=== PATIENT | male | born 1955 | race Hispanic/Latino ===

== ENCOUNTER 2023-08-02 01:30 | Emergency (ER) | payer MEDICARE ==
[~2023-08-02] VITALS: Ht 165.1 cm; Wt 72.6 kg
[2023-08-02 01:42] VITALS: BP_SYST 187; BP_DIAS 101; BP_DIAS 89; PULSE 60; PULSE 64; RESP 17; TEMP 98.2; O2SAT 97
[2023-08-02] MEDS ORDERED: NS 500ML 500 ML IV ONE (02:04)
[2023-08-02 02:08] VITALS: BP 195/98; PULSE 64; RESP 17; TEMP 98.2; O2SAT 97
[2023-08-02 02:20] LABS: +ADD MANUAL DIFF(NO CHRG) NO; BASOPHIL % 0.6 % (0.0-0.2); EOSINOPHIL % 0.6 % (0.0-5.0); HEMATOCRIT(ML) 39.8 % (37.0-53.0); HEMOGLOBIN 12.1 g/dL (13.9-16.3); MEAN CORP HGB 26.8 pg (26-34); MEAN CORP HGB CONCENTRATION 30.4 g/dL (33-36.5); MEAN CORP VOLUME 88.1 fL (78-100); MONOCYTES # 0.8 10^3/uL (0.3-0.8); MONOCYTES % 12.4 % (5.0-12.0); NEUTROPHIL # 4.8 10^3/uL (1.8-7.7); NEUTROPHILS % 75.1 % (41.0-85.0); PLATELET COUNT 171 10^3/uL (150-400); RED BLOOD CELL 4.52 10^6/uL (4.50-5.90); RED CELL DISTRIBUTION WIDTH 18.1 % (11.5-14.5); WHITE BLOOD CELL 6.4 10^3/uL (4.5-11.0)
[2023-08-02 02:23] LABS: INR 1.1; PROTHROMBIN PROTIME 11.8 SEC (9.7-11.6)
[2023-08-02 02:38] LABS: ALBUMIN/GLOBULIN RATIO 0.465; ANION GAP 15.4; BUN/CREATININE RATIO 8.94 (10.0-20.0); CALCIUM 8.1 mg/dL (8.4-10.5); CARBON DIOXIDE 25.6 mmol/L (20.0-32); CREATINE KINASE MB 5.3 ng/mL (0.5-3.6); EST GFR, NON-AA 7.9 (>/=60)
[2023-08-02 02:45] LABS: CREATININE SERUM 6.93 mg/dL (0.59-1.40)
[2023-08-02] MEDS ORDERED: ROCEPHIN 2,000 MG in NS 100ML 100 ML IV SCH (03:30)
[2023-08-02 04:06] LABS: APPEARANCE,URINE CLOUDY; BILIRUBIN,URINE NEGATIVE (NEGATIVE); NITRATE,URINE NEGATIVE (NEGATIVE); PH,URINE 7.5 (4.5-8.0); UA COLOR YELLOW; UROBILINOGEN,URINE 0.2 E.U./dL (0.2)
[2023-08-02 04:07] LABS: LEUKOCYTE ESTERASE ,URINE NEGATIVE (NEGATIVE)
== END 2023-08-02 03:49 | disposition short-term general hospital (02) ==
LOC: ER 01:30
DX: G93.40 Encephalopathy, unspecified (principal); E11.22 Type 2 diabetes mellitus with diabetic chronic kidney disease; E11.65 Type 2 diabetes mellitus with hyperglycemia; I12.0 Hypertensive chronic kidney disease with stage 5 chronic kidney disease or end stage renal disease; N18.6 End stage renal disease; K74.60 Unspecified cirrhosis of liver; B19.20 Unspecified viral hepatitis C without hepatic coma; J90 Pleural effusion, not elsewhere classified; Z99.2 Dependence on renal dialysis; Z20.822 Contact with and (suspected) exposure to COVID-19
CPT/HCPCS: 99291; 70450; 87426; 87086; 71045; 80053; 85025; 36415; 84484; 87040 ×2; 83605; 82140; 82553; 81001; 82550; 85610; 93005; J7040